=== PATIENT | female | born 1995 | race Hispanic/Latino ===

== ENCOUNTER 2017-09-23 05:26 | Emergency (ER) | payer SELFPAY ==
--- NOTE | 2017-09-23 06:11 | C.PDOC ---
History Of Present Illness 22yo female, brought in by EMS for evaluation due to alcohol intoxication. Patient denies any medical complaints and is requesting to be discharged. ( Amira Wang) History Per: EMS Onset/Duration Of Symptoms: Mins Current Symptoms Are (Timing): Still Present Modifying Factor(s): Alcohol Time Seen by Provider: 09/23/17 06:06 Chief Complaint (Nursing): Substance Abuse Past Medical History Reviewed: Historical Data, Nursing Documentation, Vital Signs - Medical History PMH: No Chronic Diseases Surgical History: Tonsillectomy Family History: States: Unknown Family Hx - Social History Hx Alcohol Use: Yes Hx Substance Use: Yes - Immunization History Hx Tetanus Toxoid Vaccination: No Hx Influenza Vaccination: No Hx Pneumococcal Vaccination: No Vital Signs: Last Vital Signs Temp 98 F 09/23/17 06:48 Pulse 81 09/23/17 09:31 Resp 16 09/23/17 09:31 BP 108/75 09/23/17 09:31 Pulse Ox 100 09/23/17 09:31 Review Of Systems Except As Marked, All Systems Reviewed And Found Negative. Psych: Positive for: Other (alcohol use) Physical Exam - Physical Exam Appears: Well, Non-toxic, No Acute Distress Skin: Normal Color, Warm Head: Atraumatic, Normacephalic Eye(s): bilateral: Normal Inspection, EOMI Nose: Normal Oral Mucosa: Moist Neck: Normal ROM, Supple Chest: Symmetrical Cardiovascular: Rhythm Regular Respiratory: Normal Breath Sounds Gastrointestinal/Abdominal: Normal Exam, Soft, No Tenderness Back: CVA Tenderness, No Vertebral Tenderness Gait: Unsteady ED Course And Treatment O2 Sat by Pulse Oximetry: 96 (RA) Pulse Ox Interpretation: Normal Progress Note: Patient to be signed out to MAGGIE Gresham pending clinical sobriety. Disposition - Disposition Disposition Time: 06:57 - Disposition Condition: STABLE Forms: [facility] ? 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 - Scribe Statement The provider has reviewed the documentation as recorded by the Scribe - Scribe Statement Iris Treadwell Provider Attestation: All medical record entries made by the Scribe were at my direction and personally dictated by me. I have reviewed the chart and agree that the record accurately reflects my personal performance of the history, physical exam, medical decision making, and the department course for this patient. I have also personally directed, reviewed, and agree with the discharge instructions and disposition. (Amira Wang) Addendum Addendum: 09/23/17 09:45 Patient is AAOx3, ambulating normally in the ED, and is clinically sober at this time. Will discharge. (Jennifer Negron)
[2017-09-23 06:49] VITALS: TEMP 98
[2017-09-23 09:32] VITALS: BP 108/75; PULSE 81; RESP 16; O2SAT 100
== END 2017-09-23 09:51 | disposition home or self-care (01) ==
LOC: C.ER 05:26
DX: F10.129 Alcohol abuse with intoxication, unspecified (principal)